=== PATIENT | female | born 1965 | race Caucasian/White ===

== ENCOUNTER → 2023-01-29 | Day surgery (SDC) | payer MEDICARE, MEDICAID ==
[~2023-01-29] VITALS: Ht 162.6 cm; Wt 86.2 kg
[~2023-01-29] MED LIST: AFLI2VIA IO; AMLO10TA80 PO; ATOR10TA69 PO; BACITRACIN 15GM TUBE TOP ONE; BUPIVACAINE HCL/PF 0.5% (5MG/ML) 10ML ONE; CARV6.2548 PO; CLON0.2T PO; FENTANYL CITRATE/PF 50MCG/ML 2ML VIAL IV PRN; FENTANYL CITRATE/PF 50MCG/ML 2ML VIAL ONE; FURO40TA5 PO; HEPARIN 1000 UNITS/ML 10ML ONE; HEPARIN SODIUM 1,000 UNIT/1ML VIAL IV ONE; HYDR100T26 PO; HYDROMORPHONE HCL/PF 2MG/ML CPJ IV PRN; INSU100I24 SQ; ISOS120T13 PO; LIDOCAINE HCL 1% 10 MG/ML 10ML VIAL ONE; MIDAZOLAM HCL 2 MG/2 ML VIAL ONE; ONDA4TAB50 PO; ONDANSETRON HCL 4MG/2ML INJ IV PRN; PANT20TA17 PO; POLYMYXIN B SULFATE 500000 UNITS/VIAL ONE; SODIUM CHLORIDE 0.9% 500 ML IV ONE; THROMBIN (BOVINE) 5000 UNITS/VIAL TOP ONE; TRAM50TA3 PO; ZOLP10TA2 PO
[2023-01-29 09:57] LABS: PARTIAL THROMBOPLASTIN TIME 27.5 sec (23.4-31.0); PROTHROMBIN TIME 10.6 sec (9.6-11.0)
[2023-01-29 09:58] LABS: BASOPHILS % 0.6 % (0.0-2.0); EOSINOPHILS % 8.9 % (0.0-5.0); HEMATOCRIT. 35.8 % (36.0-48.0); HEMOGLOBIN. 12.2 g/dL (12.0-16.0); MEAN CORPUSCULAR HEMOGLOBIN 29.2 pg (28.0-32.0); MEAN CORPUSCULAR VOLUME 85.7 fL (81.0-99.0); MEAN PLATELET VOLUME 8.2 fl (7.4-10.4); MONOCYTES % 7.5 % (2.0-8.0); PLATELET 260 x1000/uL (130-400); RED BLOOD CELL COUNT 4.18 mill/uL (4.2-5.4); RED CELL DISTRIBUTION WIDTH 15.3 % (11.6-14.6)
[2023-01-29 13:02] VITALS: BP 158/74
== END | disposition home or self-care (01) ==
LOC: OR 08:57
PROVIDERS: ATTEND Surgery Vascular Surgery
DX: I12.0 Hypertensive chronic kidney disease with stage 5 chronic kidney disease or end stage renal disease (principal); N18.6 End stage renal disease; E11.22 Type 2 diabetes mellitus with diabetic chronic kidney disease; I25.10 Atherosclerotic heart disease of native coronary artery without angina pectoris; E66.9 Obesity, unspecified; Z79.4 Long term (current) use of insulin; Z79.899 Other long term (current) drug therapy; Z98.890 Other specified postprocedural states; Z20.822 Contact with and (suspected) exposure to COVID-19
CPT/HCPCS: 36415; 36821; 80048; 85025; 85610; 85730; 87426; 93005; A4217; C9803; J1170; J1644; J2250; J3010; J3490; Z7610

== ENCOUNTER → 2023-05-21 | Day surgery (SDC) | payer MEDICARE, MEDICAID ==
[~2023-05-21] VITALS: Ht 162.6 cm; Wt 86.2 kg
[~2023-05-21] MED LIST changes: -FENTANYL CITRATE/PF 50MCG/ML 2ML VIAL IV PRN; -HEPARIN 1000 UNITS/ML 10ML ONE; -HYDROMORPHONE HCL/PF 2MG/ML CPJ IV PRN; -LIDOCAINE HCL 1% 10 MG/ML 10ML VIAL ONE; +LIDOCAINE HCL 1% 20ML VIAL (Pyxis) INJ ONE; -MIDAZOLAM HCL 2 MG/2 ML VIAL ONE; +PROPOFOL 200MG/20ML VIAL IV ONE; +ROCURONIUM BROMIDE 10MG/ML VIAL 5ML IV ONE; +SUCCINYLCHOLINE CHLORIDE 200MG/10ML IV ONE
[2023-05-21 10:06] LABS: BASOPHILS % 0.5 % (0.0-2.0); EOSINOPHILS % 1.9 % (0.0-5.0); HEMATOCRIT. 35.1 % (36.0-48.0); HEMOGLOBIN. 11.9 g/dL (12.0-16.0); LYMPHOCYTES % 15.5 % (20.0-50.0); MEAN CORPUSCULAR HEMOGLOBIN 30.9 pg (28.0-32.0); MEAN CORPUSCULAR VOLUME 90.7 fL (81.0-99.0); MEAN PLATELET VOLUME 7.3 fl (7.4-10.4); MONOCYTES % 8.3 % (2.0-8.0); NEUTROPHILS % 73.8 % (40.0-76.0); PLATELET 351 x1000/uL (130-400); RED BLOOD CELL COUNT 3.87 mill/uL (4.2-5.4); RED CELL DISTRIBUTION WIDTH 15.1 % (11.6-14.6)
[2023-05-21 10:19] LABS: PARTIAL THROMBOPLASTIN TIME 30.5 sec (23.4-31.0); PROTHROMBIN TIME 11.2 sec (9.6-11.0)
[2023-05-21] MEDS: HYDROMORPHONE HCL/PF 2MG/ML CPJ IV PRN ×2 (13:18→13:46)
[2023-05-21 13:46] VITALS: BP 162/75; PULSE 76; RESP 18
== END | disposition home or self-care (01) ==
LOC: OR 09:40
PROVIDERS: ATTEND Surgery Vascular Surgery
DX: N18.6 End stage renal disease (principal); Z79.4 Long term (current) use of insulin; Z79.899 Other long term (current) drug therapy; Z91.040 Latex allergy status; Z98.890 Other specified postprocedural states
CPT/HCPCS: 80048; 85025; 85610; 85730; 36415; 93005; 36818; J3010; J3490 ×5; J1644; J2405; J2704; J0330; J1170; Z7610 ×23; J7040; J7030; A4565